=== PATIENT | female | born 1990 | race Hispanic/Latino ===

== ENCOUNTER → 2018-10-13 | Day surgery (SDC) | payer OTHER ==
[2018-10-13 16:53] VITALS: BMI 32.2
--- NOTE | 2018-10-13 18:09 | HP ---
PRIMARY OB: Dr. Benjamin Bauman. CHIEF COMPLAINT: Abdominal pains. HISTORY OF PRESENT ILLNESS: The patient is a 28-year-old, G4, P3 female with an intrauterine at 35 weeks and 4 days, presenting with a 2-day history of sharp pelvic abdominal pains. She reports that she feels that worse with the baby moving and kicking with movement and activity such as getting out of bed, getting out of the car, walking, and lifting. The patient had not experienced this with her prior pregnancies and was unsure if it was something for her to be concerned about. The patient denies uterine contractions, vaginal bleeding, or leakage of fluid. She denies fever, fall, headache, chest pain, shortness of breath, nausea, vomiting, diarrhea, constipation, any new rashes, hip problems, knee problems, or muscle weakness. She denies vaginal bleeding, leakage of fluid, urinary urgency. The patient reports with this abdominal pain, she also feels shooting in her vaginal region with activity back. PAST MEDICAL HISTORY: Negative. PAST SURGICAL HISTORY: Negative. ALLERGIES: NO KNOWN DRUG ALLERGIES. MEDICATIONS: vitamins. SOCIAL HISTORY: Denies drug, alcohol, or tobacco use. OB LABS: Unavailable at the time of dictation. REVIEW OF SYSTEMS: Complete review of systems has been reviewed and present in the HPI. PHYSICAL EXAMINATION: VITAL SIGNS: Blood pressure 99/59, heart rate of 84, respiratory rate 18, saturating 98% on room air, and temperature 98.9. GENERAL: She appears to be in no acute distress. She is alert, oriented, cooperative, and pleasant to interact with. HEENT: Head is normocephalic and atraumatic. LUNGS: Clear to auscultation bilaterally. HEART: Has a regular rate and rhythm. ABDOMEN: Gravid, soft. She does have some tenderness on the left more than the right with deviation of the uterus down in the pelvis. EXTREMITIES: Nontender, nonedematous. : Per nursing staff is 2, 60, and -2 station. heart tracing performed for abdominal pain and , baseline is noted to be in the 120s with moderate long-term variability, positive 15 x 15 accelerations, and no decelerations. Tocometer showing some irritability, not noticed by the patient. ASSESSMENT AND PLAN: The patient is a 28-year-old, G4, P3 female with an intrauterine at 35 weeks and 4 days, experiencing ligament pain and musculoskeletal pains of . I have given her reassurance. The patient has driven herself here and we have counseled her to take two Tylenol 3 times a day for the next several days in effort to get some pain relief. Also moist heat or a warm bath can also help give relief. She has been given labor precautions. She has an appointment tomorrow with Dr. Bauman, which we have encouraged that she keep. Fetus has a reactive NST and category 1 tracing. Job ID: [id number]
== END ==
LOC: L&D/OP 16:11
PROVIDERS: ATTEND Obstetrics & Gynecology
DX: O99.89 Other specified diseases and conditions complicating pregnancy, childbirth and the puerperium (principal); R10.2 Pelvic and perineal pain; Z3A.35 35 weeks gestation of pregnancy
CPT/HCPCS: 99282